=== PATIENT | female | born 2000 | race Two or more races ===

== ENCOUNTER 2023-03-03 19:05 | Emergency (ER) | payer BC ==
[2023-03-03 19:28] VITALS: BP 127/88; PULSE 90; RESP 16; TEMP 98.3; BMI 34.9
[2023-03-03 22:21] LABS: HEMATOCRIT 38.8 % (32.4-45.2); HEMOGLOBIN 12.9 GM/dL (10.7-15.3); MCH 28.4 pg (25.7-33.7); MCHC 33.3 g/dl (32.0-36.0); MEAN CELL VOLUME 85.3 fl (80-96); MEAN PLT VOLUME 8.2 fl (7.5-11.1); PLATELET COUNT 307 10^3/uL (134-434); RBC 4.55 M/mm3 (3.60-5.2); RDW 14.5 % (11.6-15.6); WHITE BLOOD COUNT 10.3 K/mm3 (4.0-10.0)
[2023-03-03 22:34] LABS: INR 1.03 (0.83-1.09)
[2023-03-03 22:36] LABS: ACTIVATED PTT 35.2 SECONDS (25.2-36.5)
[2023-03-03 22:38] LABS: POTASSIUM 3.8 mmol/L (3.5-5.1)
[2023-03-03 22:44] LABS: CREATININE 0.6 mg/dL (0.55-1.3)
[2023-03-03 22:46] LABS: BILIRUBIN,TOTAL 0.6 mg/dL (0.2-1); TOT PROT 7.7 g/dl (6.4-8.2)
== END 2023-03-04 00:25 | disposition home or self-care (01) ==
LOC: JER 19:05
DX: N93.9 Abnormal uterine and vaginal bleeding, unspecified (principal); N92.1 Excessive and frequent menstruation with irregular cycle; R42 Dizziness and giddiness
CPT/HCPCS: 36415; 76830-TC; 80053; 84703; 85027; 85610; 85730; 86850; 86900; 86901; 99284-25